=== PATIENT | male | born 1980 | race Caucasian/White ===

== ENCOUNTER 2018-03-31 09:36 | Emergency (ER) | payer SELFPAY ==
[~2018-03-31] VITALS: Ht 172.7 cm; Wt 71.8 kg
[2018-03-31 09:40] VITALS: BP 138/80; PULSE 66; RESP 18; TEMP 98.4; O2SAT 98
--- NOTE | 2018-03-31 10:19 | PD ---
HPI Chief Complaint: GI Complaint Time Seen by Provider: 09:57 Travel History International Travel<30 days: No Contact w/Intl Traveler<30days: No Traveled to known affect area: No History of Present Illness HPI 37-year-old male presents emergency department for evaluation of rectal bleeding that he saw this morning as he was wiping. Says that he had a bowel movement and was wiping and some bright red bleeding on the toilet paper. He denies actual blood in the toilet. He denies pain, swelling, fullness, pressure to the area. He denies fever, chills, chest pain, shortness of breath , dizziness, weakness. He said he had a similar episode 2 weeks ago but did not have the quantity had today. He says that he has normal bowel movements and denies any constipation. He says his stools have been slightly loose. He denies chronic medical issues medication use. He denies urinary symptoms. PFSH Past Medical History Medical History: Denies Significant Hx Diminished Hearing: No Influenza Vaccination: No ?: Not Past Surgical History Surgical History: No Previous Surgery Social History Alcohol Use: Yes Tobacco Use: No Allergies-Medications (Allergen,Severity, Reaction): Coded Allergies: Penicillins (Verified Allergy, Intermediate, RASH, 03/31/18) Reported Meds & Prescriptions Reported Meds & Active Scripts Active Anusol-Hc Rectal (Hydrocortisone Rectal) 2.5% Cream 1 Applic RECTAL Q6H PRN Review of Systems Except as stated in HPI: all other systems reviewed are Neg Physical Exam Narrative GENERAL: Well-developed well-nourished no apparent distress SKIN: Focused skin assessment warm/dry. HEAD: Atraumatic. Normocephalic. EYES: Pupils equal and round. No scleral icterus. No injection or drainage. ENT: No nasal bleeding or discharge. Mucous membranes pink and moist. NECK: Trachea midline. No JVD. No lymphadenopathy CARDIOVASCULAR: Regular rate and rhythm. No murmur appreciated. RESPIRATORY: No accessory muscle use. Clear to auscultation. Breath sounds equal bilaterally. GASTROINTESTINAL: Abdomen soft, non-tender, nondistended. Hepatic and splenic margins not palpable. Rectal exam performed with nurse in the room Good rectal tone, red tinged stool. No skin tags or fissures noted to the rectum MUSCULOSKELETAL: No obvious deformities. No clubbing. No cyanosis. No edema. NEUROLOGICAL: Awake and alert. No obvious cranial nerve deficits. Motor grossly within normal limits. Normal speech. PSYCHIATRIC: Appropriate mood and affect; insight and judgment normal. Data Data Last Documented VS Vital Signs Date Time Temp Pulse Resp B/P (MAP) Pulse Ox O2 Delivery O2 Flow Rate FiO2 03/31/18 09:40 98.4 66 18 138/80 (99) 98 MDM Medical Decision Making Medical Screen Exam Complete: Yes Emergency Medical Condition: Yes Differential Diagnosis Rectal bleeding, hemorrhoids, colitis Narrative Course 37-year-old male presents emergency department for evaluation of rectal bleeding that he saw this morning as he was wiping. Says that he had a bowel movement and was wiping and some bright red bleeding on the toilet paper. He denies actual line on the toilet. He denies pain, swelling, fullness, pressure to the area. He denies fever, chills, chest pain, shortness of breath, dizziness, weakness. He said he had a similar episode 2 weeks ago but did not have the quantity had today. He says that he has normal bowel movements and denies any constipation. He says his stools have been slightly loose. He denies chronic medical issues medication use. He denies urinary symptoms. Vital signs are stable. I suspect that patient has internal hemorrhoids. I do not appreciate a large quantity blood today. His Hemoccult was positive in his stool was red tinged. He denies any blood in the stool or toilet, only on the toilet paper. He will be discharged with anal saw for a likely hemorrhoid. Advised him to follow-up with gastroenterology and a primary care physician. Sits baths several times a week. He should return for worsening or persistent symptoms. [facility] Point of Care Internal Pos. & Neg. Controls: Passed Fecal Specimen Occult Blood: Positive Diagnosis Primary Impression: Rectal bleeding Referrals: [facility] Chief Patient Instructions: General Instructions, Rectal Bleeding (ED) Additional Instructions: Follow-up with primary care physician, I recommend [facility] for your care. I highly recommend he follow-up with a locomotive inspector for further evaluation of her symptoms. Avoid excessive straining of your bowels to reduce complications or further bleeding. It is likely you have an internal hemorrhoid causing her symptoms. You may use sitz bath to reduce her symptoms as well. Warm water with epsom salt. Scripts Hydrocortisone Rectal (Anusol-Hc Rectal) 2.5% Cream 1 APPLIC RECTAL Q6H Y for ITCHING/INFLAMMATION, #30 GM 0 Refills Prov: Marika Neumann DO 03/31/18 Disposition: 01 DISCHARGE HOME Condition: Stable Galina Chavez March 31, 2018 10:19
[2018-03-31] MEDS ORDERED: HYDR2.5%T RECTAL (10:20)
== END 2018-03-31 10:46 | disposition home or self-care (01) ==
LOC: PHED 09:36
DX: K62.5 Hemorrhage of anus and rectum (principal); Z88.0 Allergy status to penicillin
CPT/HCPCS: 99284